=== PATIENT | female | born 1970 | race Caucasian/White ===

== ENCOUNTER 2016-07-20 09:19 | Emergency (ER) | payer BC ==
[2016-07-20 09:50] VITALS: BP 133/80
[2016-07-20] MEDS ORDERED: Acetaminophen TAB* 325 MG PO ONE (10:13)
--- NOTE | 2016-07-20 10:14 | UC ---
Throat Pain/Nasal Luis Fernando HPI - HPI Summary HPI Summary: PT PRESENTS WITH C/O OF SORE THROAT, "UPSET" STOMACH GENERALIZED BODY ACHES x 2 DAYS. - History of Current Complaint Chief Complaint: UCGeneralIllness Stated Complaint: SORE THROAT, FEVER Time Seen by Provider: 07/20/16 09:54 Hx Obtained From: Patient Hx Last Menstrual Period: 2012 ?: No Onset/Duration: Sudden Onset Severity: Moderate Associated Signs & Symptoms: Positive: Dysphagia, Fever Related History: Other (Noted In Comments) - breast cancer - Allergies/Home Medications Allergies/Adverse Reactions: Allergies Allergy/AdvReac Type Severity Reaction Status Date / Time Adhesive Tape Allergy Intermediate LOCAL Verified 07/20/16 09:43 REACTION Ciprofloxacin [From Cipro] Allergy Intermediate HIVES AT Verified 07/20/16 09:43 IV SITE Clindamycin Allergy Intermediate ITCHING Verified 07/20/16 09:43 [From Cleocin HCl] AND REDNESS OF SKIN Home Medications: Home Medications Cholecalciferol TAB* [Vitamin D TAB*] 5,000 unit PO DAILY 07/20/16 [History Confirmed 07/20/16] Naproxen Sodium [Naproxen Sodium 220 mg] 220 mg PO Q12H PRN 07/20/16 [History Confirmed 07/20/16] PMH/Surg Hx/FS Hx/Imm Hx Previously Healthy: Yes Endocrine History Of: Denies: Diabetes Cardiovascular History Of: Denies: Cardiac Disorders Respiratory History Of: Denies: Asthma Cancer History Of: Reports: Breast Cancer - Surgical History Surgical History: Yes Surgery Procedure, Year, and Place: BILATERAL MASTECTOMY WITH SEVERAL FOR RECONSTRUCTION. OVARY REMOVAL 2005 AND 2013. ANKLE SURGERY - Family History Known Family History: Positive: Hypertension - Social History Occupation: Employed Full-time Alcohol Use: Daily Substance Use Type: None Smoking Status (MU): Never Smoked Tobacco - Immunization History Most Recent Influenza Vaccination: Not the 2016/2016 Season Review of Systems Constitutional: Fever, Chills, Fatigue Skin: Negative Eyes: Negative ENT: Sore Throat Respiratory: Negative Cardiovascular: Negative Gastrointestinal: Negative Genitourinary: Negative Motor: Negative Neurovascular: Negative Musculoskeletal: Negative Neurological: Negative Psychological: Negative All Other Systems Reviewed And Are Negative: Yes Physical Exam Triage Information Reviewed: Yes Appearance: Ill-Appearing Vital Signs: Initial Vital Signs Temp 100.1 F 07/20/16 09:42 Pulse 90 07/20/16 09:42 Resp 16 07/20/16 09:42 BP 133/80 07/20/16 09:42 Pulse Ox 97 07/20/16 09:42 Vital Signs Reviewed: Yes Eye Exam: Normal ENT Exam: Other ENT: Positive: Tonsillar swelling, Tonsillar exudate Neck exam: Normal Respiratory Exam: Other Respiratory: Positive: No respiratory distress Cardiovascular Exam: Normal Musculoskeletal Exam: Normal Neurological Exam: Normal Psychological Exam: Normal Skin Exam: Normal Throat Pain/Nasal Course/Dx - Differential Dx/Diagnosis Differential Diagnosis/HQI/PQRI: Influenza, Tonsillitis, URI Provider Diagnoses: Strep throat. positive rapid strep at clinic Discharge - Discharge Plan Condition: Stable Disposition: HOME Prescriptions: Fluconazole 100 MG TAB* [Diflucan 100 MG TAB*] 100 mg PO DAILY #2 tab Penicillin VK TAB 500 MG(NF) [Penicillin VK 500 mg Tab(NF)] 500 mg PO Q8HR #30 tab Patient Education Materials: Strep Throat (ED) Referrals: Surinder Hardy MD [Primary Care Provider] - If Needed
== END 2016-07-20 10:19 | disposition home or self-care (01) ==
LOC: UCCORT 09:19
DX: J02.0 Streptococcal pharyngitis (principal); Z88.1 Allergy status to other antibiotic agents; Z85.3 Personal history of malignant neoplasm of breast
CPT/HCPCS: 81003; 87502; 87651; 99212; A9270-GY; G0463

== ENCOUNTER 2018-08-03 15:43 | Emergency (ER) | payer BC ==
[2018-08-03 16:09] VITALS: BP 144/79
--- NOTE | 2018-08-03 16:32 | ED ---
HPI Chest Pain - HPI Summary HPI Summary: Pt is a 47 year old female who has a hx of metastatic breast cancer 6 years ago who presents for evaluation of her right sided chest wall pain. she states that it goes to her neck. she states that she runs a lot and never gets short of breath until this past weekend. she states that she has been getting mildly short of breath. she states that she is worried something is wrong. she has had a bilateral mastectomy with implants. she has done really well since all of her chemo/radiation and surgeries which finished 3 years ago. She states she wanted to go to the ER but her did not want to take her so she convinced him to bring her to the . - History of Current Complaint Chief Complaint: UCGeneralIllness Hx Obtained From: Patient Hx Last Menstrual Period: 2012 Onset/Duration: Started Weeks Ago - 2 Initial Severity: Mild Current Severity: Mild Pain Intensity: 0 - Allergy/Home Medications Allergies/Adverse Reactions: Allergies Allergy/AdvReac Type Severity Reaction Status Date / Time Adhesive Tape Allergy Intermediate LOCAL Verified 08/03/18 16:42 REACTION ciprofloxacin [From Cipro] Allergy Hives Verified 08/03/18 16:42 clindamycin Allergy Itching Verified 08/03/18 16:42 PMH/Surg Hx/FS Hx/Imm Hx Endocrine/Hematology History: Denies: Hx Diabetes Respiratory History: Denies: Hx Asthma - Cancer History Cancer Type, Location and Year: PRP+ Bilateral Breasts, 2012, [facility] - Surgical History Surgery Procedure, Year, and Place: BILATERAL MASTECTOMY WITH SEVERAL FOR RECONSTRUCTION. OVARY REMOVAL 2005 AND 2013. ANKLE SURGERY Infectious Disease History: No Infectious Disease History: Denies: Traveled Outside the [place] in Last 30 Days - Family History Known Family History: Positive: Hypertension - Social History Alcohol Use: Daily Substance Use Type: Reports: None Smoking Status (MU): Never Smoked Tobacco Review of Systems Constitutional: Negative Eyes: Negative ENT: Negative Positive: Chest Pain Positive: Shortness Of Breath Negative: Vomiting, Nausea Negative: dysuria Negative: Arthralgia, Edema Negative: Rash, Bruising Negative: Headache, Weakness, Syncope, Slurred Speech Psychological: Normal All Other Systems Reviewed And Are Negative: No Physical Exam Triage Information Reviewed: Yes Vital Signs On Initial Exam: Initial Vitals Temp Pulse Resp BP Pulse Ox 99.4 F 80 16 144/79 98 08/03/18 16:03 08/03/18 16:03 08/03/18 16:03 08/03/18 16:03 08/03/18 16:03 Vital Signs Reviewed: Yes Appearance: Positive: Well-Appearing, No Pain Distress, Well-Nourished Skin: Positive: Warm, Dry Eyes: Positive: Normal, EOMI, CHEY ENT: Positive: Hearing grossly normal, Pharynx normal Respiratory/Lung Sounds: Positive: Clear to Auscultation, Breath Sounds Present Cardiovascular: Positive: Normal, RRR Abdomen Description: Positive: Nontender, Soft Bowel Sounds: Positive: Present Musculoskeletal: Positive: Normal, Strength/ROM Intact Neurological: Positive: Normal, Sensory/Motor Intact, Alert, Oriented to Person Place, Time, CN Intact II-III Psychiatric: Positive: Normal AVPU Assessment: Alert Diagnostics - Vital Signs Vital Signs Temp Pulse Resp BP Pulse Ox 08/03/18 16:03 99.4 F 80 16 144/79 98 - Laboratory Lab Statement: Any lab studies that have been ordered have been reviewed, and results considered in the medical decision making process. Chest Pain Course/Dx - Course Course Of Treatment: EKG showed no stemi. NSR. pt encouraged to go straight to the Emergency Dept in [place]. with pt's complaints of chest pain, shortness of breath with exertion that is new, pt must have a cardiac evaluation. her ekg was nl. she needs chest xray and blood work. pt states she will go to [place] immediately after discharge. I called and spoke to Niesha the charge nurse at [place]. - Diagnoses Provider Diagnoses: Chest pain Discharge - Sign-Out/Discharge Documenting (check all that apply): Patient Departure All imaging exams completed and their final reports reviewed: No Studies - Discharge Plan Condition: Stable Disposition: [facility] Patient Education Materials: Chest Pain (ED) Referrals: Rom Ramos DO [Primary Care Provider] - Additional Instructions: Please go to [facility] Emergency Department immediately upon discharge. You need an EKG, Chest xray and blood work to evaluate your heart and lungs. You may have a life threatening illness. you must be evaluated. Please go straight to the Emergency Dept. spoke to charge Niesha. [place] [facility] is aware that you will be coming for further evaluation. - Billing Disposition and Condition Condition: STABLE Disposition: Trans [facility] Care Fac
== END 2018-08-03 16:58 | disposition short-term general hospital (02) ==
LOC: UCCORT 15:43
DX: R07.9 Chest pain, unspecified (principal); Z88.1 Allergy status to other antibiotic agents; Z88.8 Allergy status to other drugs, medicaments and biological substances; Z91.048 Other nonmedicinal substance allergy status
CPT/HCPCS: 93005; 99212; G0463